=== PATIENT | male | born 1970 | race Caucasian/White ===

== ENCOUNTER 2021-01-29 09:32 | Emergency (ER) | payer OTHER ==
[~2021-01-29 09:32] MED LIST: IBU800 MG PO; NORCO 7.5-3251 EACH PO
[2021-01-29 10:40] LABS: HEMOGLOBIN 15.5 gm/dl (14.0-17.5); RED BLOOD COUNT 5.4 M/UL (4.20-5.50); WHITE BLOOD COUNT 10.3 K/UL (4.5-11.0)
[2021-01-29 11:07] LABS: BUN/CREATININE RATIO 16 (0-10)
[2021-01-29] MEDS ORDERED: HYDROCODON-ACE1 EAC2 PO (13:37)
[2021-01-29] MEDS ORDERED: ONDANSETRON ODT4 MG SL (13:46)
== END 2021-01-29 14:05 | disposition home or self-care (01) ==
LOC: ER1 09:32
PROVIDERS: Physician Assistant
DX: S22.41XA Multiple fractures of ribs, right side, initial encounter for closed fracture (principal); S60.211A Contusion of right wrist, initial encounter; R91.1 Solitary pulmonary nodule; R10.11 Right upper quadrant pain; J44.9 Chronic obstructive pulmonary disease, unspecified; Z85.118 Personal history of other malignant neoplasm of bronchus and lung; F17.200 Nicotine dependence, unspecified, uncomplicated; W10.9XXA Fall (on) (from) unspecified stairs and steps, initial encounter
CPT/HCPCS: 71111; 73110; 80053; 81001; 83690; 85025; 96374; 96375; 99284; J2270; J2405; J7030; Q9967